=== PATIENT | male | born 1940 | race Caucasian/White ===

== ENCOUNTER 2018-09-15 05:40 | Emergency (ER) | payer MEDICARE ==
--- NOTE | 2018-09-15 05:48 | ER Report ---
History and Physical Time Seen By MD: 05:40 (DANY ANDRADE DO) HPI/ROS CHIEF COMPLAINT: Urinary retention, constipation HISTORY OF PRESENT ILLNESS: 77-year-old male presents to the ER having difficulty voiding his urine since last night. He states he had 3 beers last night, which is over his usual limit. Patient denies recent cold or illness. He's had no cold medicine. He takes lisinopril and atorvastatin for his cholesterol. His primary care doctor in [place], [place], his home. He is traveling with his camping trailer around the for 1 year. Patient states that a normal bowel movement yesterday. He's not had a bowel movement since then. Patient notes abdominal distention. He states his diet is not very good. Patient denies history of abdominal surgery. He denies prostate enlargement. Patient takes several supplements. Super beta prostate, over 50 age multivitamin, and a joint supplement. REVIEW OF SYSTEMS: Respiratory: No cough, no dyspnea. Cardiovascular: No chest pain, no palpitations. Gastrointestinal: As above Musculoskeletal: No back pain. (DANY ANDRADE DO) Allergies: Coded Allergies: No Known Drug Allergies (Unverified , 09/15/18) Home Meds Active Scripts Ciprofloxacin Hcl 500 Mg Tab (CIPRO 500 MG TAB) 500 Mg Tablet, 500 MG PO BID for 5 Days, #10 TAB Prov:ROHAN GEIGER MD 09/15/18 Reported Medications Atorvastatin Calcium (LIPITOR) 10 Mg Tablet, PO QDAY, TAB 09/15/18 Lisinopril (LISINOPRIL) 5 Mg Tablet, 5 MG PO QDAY, TAB 09/15/18 Reviewed Nurses Notes: Yes Old Medical Records Reviewed: Yes (DANY ANDRADE DO) Constitutional Vital Sign - Last 24 Hours 09/15/18 09/15/18 09/15/18 09/15/18 05:44 05:55 06:00 06:10 Temp 97.7 Pulse 76 76 74 Resp 24 B/P (MAP) 162/75 150/77 (101) Pulse Ox 96 95 95 O2 Delivery Room Air 09/15/18 09/15/18 09/15/18 06:25 06:30 06:45 Pulse 75 ??? 83 Pulse Ox 94 95 95 Intake and Output 09/14/18 09/14/18 09/15/18 15:01 23:01 07:01 Output Total 5 ml Balance -5 ml (ROHAN GEIGER MD) Physical Exam Vital signs stable, afebrile, pulse ox normal General Appearance: The patient is alert, has no immediate need for airway protection and no current signs of toxicity. Mild distress HEENT: Pupils equal and round no injection. Anicteric sclera, oropharynx without redness or exudate Respiratory: Chest is non tender, lungs are clear to auscultation. Cardiac: regular rate and rhythm Gastrointestinal: Abdomen is soft, mild distention and non tender, no masses, bowel sounds hyperactive. Musculoskeletal: Neck: Neck is supple and non tender. No lymphadenopathy, no thyromegaly Extremities have full range of motion and are non tender. No calf tenderness, no edema Skin: No rashes or lesions. DIFFERENTIAL DIAGNOSIS: After history and physical exam differential diagnosis was considered for abdominal pain including but not limited to appendicitis, cholecystitis, gastritis and urinary tract infection. Additionally,urinary retention including but not limited to medication side effect, neurologic causes, outflow obstruction including prostatic hypertrophy, and blood. (DANY ANDRADE DO) Medical Decision Making Data Points Result Diagram: 09/15/18 0603 09/15/18 0603 Laboratory Hematology Test 09/15/18 06:03 09/15/18 06:06 Red Blood Count 5.37 M/uL (4.00-5.60) Mean Corpuscular Volume 91.2 fL (80.0-96.0) Mean Corpuscular Hemoglobin 30.7 pg (26.0-33.0) Mean Corpuscular Hemoglobin Concent 33.7 g/dL (32.0-36.0) Red Cell Distribution Width 14.3 % (11.5-14.5) Mean Platelet Volume 8.3 fL (7.2-11.1) Neutrophils (%) (Auto) 75.1 % (39.4-72.5) Lymphocytes (%) (Auto) 15.3 % (17.6-49.6) Monocytes (%) (Auto) 7.8 % (4.1-12.4) Eosinophils (%) (Auto) 1.1 % (0.4-6.7) Basophils (%) (Auto) 0.7 % (0.3-1.4) Nucleated RBC Relative Count (auto) 0.0 /100WBC Neutrophils # (Auto) 8.0 K/uL (2.0-7.4) Lymphocytes # (Auto) 1.6 K/uL (1.3-3.6) Monocytes # (Auto) 0.8 K/uL (0.3-1.0) Eosinophils # (Auto) 0.1 K/uL (0.0-0.5) Basophils # (Auto) 0.1 K/uL (0.0-0.1) Nucleated RBC Absolute Count (auto) 0.00 K/uL Prothrombin Time 12.9 seconds (12.0-14.4) Prothromb Time International Ratio 0.97 Activated Partial Thromboplast Time 27 seconds (23-35) Sodium Level 138 mmol/L (137-145) Potassium Level 4.3 mmol/L (3.5-5.0) Chloride Level 105 mmol/L (98-107) Carbon Dioxide Level 22 mmol/L (22-30) Blood Urea Nitrogen 19 mg/dl (9-21) Creatinine 0.70 mg/dl (0.66-1.25) Glomerular Filtration Rate Calc > 60.0 Random Glucose 113 mg/dl (75-110) Calcium Level 9.5 mg/dl (8.4-10.2) Total Bilirubin 0.9 mg/dl (0.2-1.3) Aspartate Amino Transf (AST/SGOT) 34 U/L (0-35) Alanine Aminotransferase (ALT/SGPT) 35 U/L (0-56) Alkaline Phosphatase 65 U/L (0-126) Total Protein 6.8 g/dl (6.3-8.2) Albumin 4.2 g/dl (3.5-5.0) Amylase Level 96 U/L (0-110) Lipase 186 U/L (23-300) Urine Color Yellow Urine Clarity Slightly-cloudy Urine pH 5.0 pH (4.8-9.5) Urine Specific [place] 1.016 Urine Protein Negative mg/dL (NEGATIVE) Urine Glucose (UA) Negative mg/dL (NEGATIVE) Urine Ketones Negative mg/dL (NEGATIVE) Urine Blood Negative (NEGATIVE) Urine Nitrite Negative (NEGATIVE) Urine Bilirubin Negative (NEGATIVE) Urine Urobilinogen Negative mg/dL (0.2-1.9) Urine Leukocyte Esterase Trace (NEGATIVE) Urine RBC 3 /HPF (0-2/HPF) Urine WBC 10 /HPF (0-5/HPF) Urine Squamous Epithelial Cells None /LPF (</=FEW) Urine Transitional Epithelial Cells Few /LPF (NONE-FEW) Urine Bacteria Few /HPF (NONE-FEW) Urine Hyaline Casts Few /LPF (NONE-FEW) Urine Mucus Few /HPF (NONE-FEW) Chemistry Test 09/15/18 06:03 09/15/18 06:06 White Blood Count 10.6 k/uL (4.5-11.0) Red Blood Count 5.37 M/uL (4.00-5.60) Hemoglobin 16.5 g/dL (14.0-18.0) Hematocrit 49.0 % (42.0-52.0) Mean Corpuscular Volume 91.2 fL (80.0-96.0) Mean Corpuscular Hemoglobin 30.7 pg (26.0-33.0) Mean Corpuscular Hemoglobin Concent 33.7 g/dL (32.0-36.0) Red Cell Distribution Width 14.3 % (11.5-14.5) Platelet Count 227 K/uL (150-450) Mean Platelet Volume 8.3 fL (7.2-11.1) Neutrophils (%) (Auto) 75.1 % (39.4-72.5) Lymphocytes (%) (Auto) 15.3 % (17.6-49.6) Monocytes (%) (Auto) 7.8 % (4.1-12.4) Eosinophils (%) (Auto) 1.1 % (0.4-6.7) Basophils (%) (Auto) 0.7 % (0.3-1.4) Nucleated RBC Relative Count (auto) 0.0 /100WBC Neutrophils # (Auto) 8.0 K/uL (2.0-7.4) Lymphocytes # (Auto) 1.6 K/uL (1.3-3.6) Monocytes # (Auto) 0.8 K/uL (0.3-1.0) Eosinophils # (Auto) 0.1 K/uL (0.0-0.5) Basophils # (Auto) 0.1 K/uL (0.0-0.1) Nucleated RBC Absolute Count (auto) 0.00 K/uL Prothrombin Time 12.9 seconds (12.0-14.4) Prothromb Time International Ratio 0.97 Activated Partial Thromboplast Time 27 seconds (23-35) Glomerular Filtration Rate Calc > 60.0 Calcium Level 9.5 mg/dl (8.4-10.2) Total Bilirubin 0.9 mg/dl (0.2-1.3) Aspartate Amino Transf (AST/SGOT) 34 U/L (0-35) Alanine Aminotransferase (ALT/SGPT) 35 U/L (0-56) Alkaline Phosphatase 65 U/L (0-126) Total Protein 6.8 g/dl (6.3-8.2) Albumin 4.2 g/dl (3.5-5.0) Amylase Level 96 U/L (0-110) Lipase 186 U/L (23-300) Urine Color Yellow Urine Clarity Slightly-cloudy Urine pH 5.0 pH (4.8-9.5) Urine Specific [place] 1.016 Urine Protein Negative mg/dL (NEGATIVE) Urine Glucose (UA) Negative mg/dL (NEGATIVE) Urine Ketones Negative mg/dL (NEGATIVE) Urine Blood Negative (NEGATIVE) Urine Nitrite Negative (NEGATIVE) Urine Bilirubin Negative (NEGATIVE) Urine Urobilinogen Negative mg/dL (0.2-1.9) Urine Leukocyte Esterase Trace (NEGATIVE) Urine RBC 3 /HPF (0-2/HPF) Urine WBC 10 /HPF (0-5/HPF) Urine Squamous Epithelial Cells None /LPF (</=FEW) Urine Transitional Epithelial Cells Few /LPF (NONE-FEW) Urine Bacteria Few /HPF (NONE-FEW) Urine Hyaline Casts Few /LPF (NONE-FEW) Urine Mucus Few /HPF (NONE-FEW) Coagulation Test 09/15/18 06:03 Prothrombin Time 12.9 seconds Prothromb Time International Ratio 0.97 Activated Partial Thromboplast Time 27 seconds Urinalysis Test 09/15/18 06:06 Urine Color Yellow Urine Clarity Slightly-cloudy Urine pH 5.0 pH (4.8-9.5) Urine Specific [place] 1.016 Urine Protein Negative mg/dL (NEGATIVE) Urine Glucose (UA) Negative mg/dL (NEGATIVE) Urine Ketones Negative mg/dL (NEGATIVE) Urine Blood Negative (NEGATIVE) Urine Nitrite Negative (NEGATIVE) Urine Bilirubin Negative (NEGATIVE) Urine Urobilinogen Negative mg/dL (0.2-1.9) Urine Leukocyte Esterase Trace (NEGATIVE) Urine RBC 3 /HPF (0-2/HPF) Urine WBC 10 /HPF (0-5/HPF) Urine Squamous Epithelial Cells None /LPF (</=FEW) Urine Transitional Epithelial Cells Few /LPF (NONE-FEW) Urine Bacteria Few /HPF (NONE-FEW) Urine Hyaline Casts Few /LPF (NONE-FEW) Urine Mucus Few /HPF (NONE-FEW) (ROHAN GEIGER MD) ED Course/Re-evaluation Clinical Indication for ER IV: IV Access ED Course Patient was admitted to an examination room. H&P was done. The differential diagnosis was considered. Patient with abdominal distention, urinary retention and constipation. He feels like he is unable to go both urine and stool. A bladder scanner was performed which showed 720-760 mL in his bladder. He was able to void. There is a trace of infection with 10 white cells noted in his urine. Decision to Disposition Date: Sep 15, 2018 Decision to Disposition Time: 06:48 (DANY ANDRADE DO) ED Course Pt. feeling improved. Had small BM in ED. Requested in/out catheter for urinary retention. Given magnesium citrate and abx for uti. Pt. knows that having further BMs may or may nor help his retention. He will go to another ED if urinary retention continues. Decision to Disposition Date: Sep 15, 2018 Decision to Disposition Time: 08:31 (ROHAN GEIGER MD) Depart Departure Latest Vital Signs Vital Signs Date Time Temp Pulse Resp B/P (MAP) Pulse Ox O2 Delivery O2 Flow Rate FiO2 09/15/18 06:45 83 95 09/15/18 06:00 150/77 (101) 09/15/18 05:44 97.7 24 Room Air (ROHAN GEIGER MD) Impression: Primary Impression: Urinary retention Additional Impression: Constipation Condition: Improved Disposition: HOME OR SELF-CARE New Scripts Ciprofloxacin Hcl 500 Mg Tab (CIPRO 500 MG TAB) 500 Mg Tablet 500 MG PO BID for 5 Days, #10 TAB Prov: ROHAN GEIGER MD 09/15/18 Patient Instructions: Constipation (ED), Urinary Retention in Men (ED) Problem Qualifiers Additional Impression: Constipation Constipation type: unspecified constipation type Qualified Codes: K59.00 - Constipation, unspecified DANY ANDRADE DO Sep 15, 2018 05:48 ROHAN GEIGER MD Sep 15, 2018 08:35
[2018-09-15] MEDS ORDERED: LISI5TAB25 PO (05:53)
[2018-09-15] MEDS ORDERED: ATOR10TA24 PO (05:53)
[2018-09-15 06:18] LABS: PLATELET COUNT, AUTOMATED 227 K/uL (150-450)
[2018-09-15 06:24] LABS: INR 0.97
[2018-09-15] MEDS ORDERED: BISACODYL 10 MG SUPP PR ONE (06:40)
--- NOTE | 2018-09-15 06:53 | RADIOLOGY IMAGING REPORT ---
FACILITY: [facility] PATIENT NAME: Esteban Jiménez : 1940 MR: [id number] V: [id number] EXAM DATE: ORDERING PHYSICIAN: DANY ANDRADE TECHNOLOGIST: Location: [facility] [place] Patient: Esteban Jiménez : 1940 Visit/Account:[id number] Date of Sevice: 09/15/2018 INDICATION: Abdominal pain, constipation. EXAM DATE: 09/15/2018 5:49 AM COMPARISON: None. FINDINGS: Single AP image of the abdomen. Bowel gas pattern is nonobstructive. No pneumatosis, pneumoperitoneum or portal venous gas. No eviden ce of large volume ascites or mass. Colonic stool burden appears within normal limits. No acute osseous abnormality. IMPRESSION: No acute abnormality. Report Dictated By: Elton Arias MD at 09/15/2018 6:45 AM Report E-Signed By: Elton Arias MD at 09/15/2018 6:46 AM WSN:[id number]
[2018-09-15] MEDS ORDERED: LIDOCAINE 2% 200MG/10ML UROJET TP ONE (07:30)
[2018-09-15] MEDS ORDERED: MAGNESIUM CITRATE 300 ML BTL PO ONE (07:30)
[2018-09-15] MEDS ORDERED: CIPR-344 PO (08:32)
[2018-09-15 08:37] VITALS: BP 138/85
== END 2018-09-15 08:52 | disposition home or self-care (01) ==
LOC: ER 05:55
DX: R33.9 Retention of urine, unspecified (principal); K59.00 Constipation, unspecified
CPT/HCPCS: 74018; 81001; 82150; 83690; 84153; 85025; 85610; 85730; 99283; A4340; A9270; 82040; 82247; 82310; 82374; 82435; 82565; 82947; 84075; 84132; 84155; 84295; 84450; 84460; 84520